=== PATIENT | female | born 1945 ===

== ENCOUNTER 2018-09-29 07:32 | Day surgery (SDC) | payer MEDICARE ==
[~2018-09-29] VITALS: Ht 160 cm; Wt 47.1 kg
[2018-09-29 08:33] VITALS: BP 137/86
[2018-09-29] MEDS ORDERED: LIDOCAINE-MPF 1%, 5ML ONE (09:28)
[2018-09-29 09:36] LABS: BASOPHILS # (AUTO) 0.02 x10^3/uL (0-0.1); BASOPHILS % (AUTO) 0 % (0-1); EOSINOPHILS # (AUTO) 0.03 x10^3/uL (0-0.4); EOSINOPHILS % (AUTO) 1 % (1-7); LYMPHOCYTES # (AUTO) 1.28 x10^3/uL (1-3.4); LYMPHOCYTES % (AUTO) 32 % (22-44); MD NO; MEAN CORPUSCULAR HEMOGLOBIN 31.2 pg (27.0-34.8); MEAN CORPUSCULAR HGB CONC 33.6 g/dL (32.4-35.8); MEAN CORPUSCULAR VOLUME 92.9 fL (80-100); MONOCYTES # (AUTO) 0.33 x10^3/uL (0.2-0.8); MONOCYTES % (AUTO) 8 % (2-9); NEUTROPHILS % (AUTO) 58 % (42-75); PLATELET COUNT 291 x10^3/uL (130-400); RED BLOOD COUNT 4.13 x10^6/uL (3.82-5.3); RED CELL DISTRIBUTION WIDTH 12.6 % (9.6-15.2)
[2018-09-29] MEDS ORDERED: FLUMAZENIL 0.1 MG/1 ML, 5ML ONE (10:00)
[2018-09-29] MEDS ORDERED: MIDAZOLAM 1 MG/ML, 5ML ONE (10:00)
[2018-09-29] MEDS ORDERED: NALOXONE 1 MG/ML, 2ML ONE (10:00)
[2018-09-29] MEDS ORDERED: FENTANYL PF 100 MCG/2ML ONE (10:00)
== END 2018-09-29 12:15 | disposition home or self-care (01) ==
LOC: OUT 07:32
PROVIDERS: ATTEND Internal Medicine
DX: C91.10 Chronic lymphocytic leukemia of B-cell type not having achieved remission (principal); Z88.8 Allergy status to other drugs, medicaments and biological substances
CPT/HCPCS: 36415; 38222; 77012; 85025; 85060; 85097; 88184; 88185; 88237; 88264; 88280; 88305; 88311; 88313; 88360; 88374; 99156; J2250; J3010; 88341; 88342; 99157; J2310